=== PATIENT | male | born 1965 | race Caucasian/White ===

== ENCOUNTER 2020-08-17 10:25 | Emergency (ER) | payer BC, SELFPAY ==
--- NOTE | ~2020-08-17 | XR_ITS ---
EXAMINATION: XR CHEST CLINICAL INFORMATION: Hypoxia and chest pain COMPARISON: None TECHNIQUE: 2 views of the chest were obtained. FINDINGS: The cardiac and mediastinal contours are normal. The lungs are clear. There is no pleural effusion or pneumothorax. Bony structures are unremarkable. XR/XR chest 2V IMPRESSION: Unremarkable examination.
--- NOTE | ~2020-08-17 | CT_ITS ---
EXAMINATION: CT CHEST WITHOUT CONTRAST CLINICAL INFORMATION: Overdose. Question aspiration pneumonia. COMPARISON: Previous chest x-ray from earlier the same day TECHNIQUE: Multidetector volumetric CT imaging of the chest was done. Axial MIP volume rendering provided. Sagittal and coronal reformatted images were obtained. This CT examination was performed using dose optimization techniques as appropriate, variously including the following: *Automated exposure control *Adjustment of mA and/or kV according to patient size (this includes techniques or standardized protocols for targeted exams where dose is matched to indication/reason for exam; i.e. extremities or head) *Use of iterative reconstruction technique DLP: 421 mGy-cm FINDINGS: SUPERVISOR FRAME SAMPLE AND PATTERN: Unremarkable LUNGS: The lungs are clear without evidence of pneumonia. MEDIASTINUM: There are small mediastinal lymph nodes. No enlarged lymph nodes are seen. The heart does not appear enlarged. There is no pericardial effusion. There is mild coronary artery calcification. The thoracic aorta is normal in caliber. The esophagus is unremarkable. The visualized thyroid gland is unremarkable. PLEURA: There is no pleural effusion. No pleural mass or thickening. AXILLA: No lymphadenopathy. UPPER ABDOMEN: Unremarkable. OSSEOUS STRUCTURES: There are degenerative changes of the spine. CT/CT chest wo con IMPRESSION: No evidence of pneumonia.
[2020-08-17 10:38] VITALS: BP 125/72; PULSE 105; RESP 10; TEMP 35.7; O2SAT 93; BMI 28.5
--- NOTE | 2020-08-17 10:43 | ED_ITS ---
HPI - Overdose General Chief Complaint: Overdose Stated Complaint: OVERDOSE Time Seen by Provider: 08/17/20 10:43 Source: patient and EMS Mode of arrival: EMS Limitations: no limitations History of Present Illness HPI Narrative: 55 yo male here s/p accidental OD. Patient tells me he snorted 1 bag of heroin. Found by EMS not breathing. Given 8mg IN narcan and 2mg IM narcan to rouse. Denes Si/HI. Denies intentional OD. On naltrexone currently. Uses heroin occasionally, tells me last use 2 weeks ago. complaint: accidental overdose Related Data Allergies Allergy/AdvReac Type Severity Reaction Status Date / Time No Known Allergies Allergy Verified 08/17/20 12:59 Review of Systems Review of Systems: Yes all other systems are reviewed and are negative Constitutional: Constitutional: Reports no additional constitutional complaints, Denies body ache(s), Denies chills, Denies fever(s), Denies headache(s) and Denies weakness Eyes: Eyes: Reports no additional eye complaints and Denies change in vision ENT: Reports system reviewed and no additional complaints, except as documented, Denies dizziness, Denies headache(s), Denies nasal congestion, Denies nasal discharge and Denies neck pain Cardiovascular: Cardiovascular: Reports no additional cardiovascular complaint s, Denies chest pain, Denies leg edema and Denies dyspnea Respiratory: Respiratory: Reports no additional respiratory complaints, Denies cough and Denies dyspnea Gastrointestinal: Gastrointestinal: Reports no additional gastrointestinal complaints, Denies abdominal pain, Denies diarrhea, Denies nausea and Denies vomiting Genitourinary: Genitourinary: Denies urinary incontinence Musculoskeletal: Musculoskeletal: Reports no additional musculoskeletal complaints, Denies back pain, Denies arthralgias, Denies joint swelling, Denies neck pain, Denies numbness and Denies tingling Integumentary/Breasts: Skin/Breast: Reports system reviewed and no additional complaints, except as docu and Denies rash Neurologic: Reports system reviewed and no additional complaints, except as documented, Denies Abnormal speech present, Denies dizziness, Denies headache(s), Denies numbness, Denies tingling and Denies weakness PMFSH Past Medical History Attestation statement: The following information was validated with the patient. Source: old records reviewed and nursing notes reviewed Social History Social History Smoking Status: Unknown if ever smoked Use of substances other than those prescribed or required for medical reasons: Yes Substance Use Type: Heroin Substance Use Frequency: Occasionally Last Used Substance: Just Prior to Admission Advance Directives: No Advance Directives Information Provided: No Physical Exam Vital Signs: Vital Signs: Last Vital Signs Temp 96.3 F L 08/17/20 10:38 Pulse 95 08/17/20 12:40 Resp 12 08/17/20 11:50 BP 125/72 08/17/20 10:38 Pulse Ox 94 08/17/20 15:05 Body Mass Index 28.5 Const: General: cooperative, healthy appearing, comfortable and no acute distress Orientation/consciousness: patient oriented x3 Limitations: no limitations HENMT: Head: Yes normal to inspection Ears: hearing grossly normal bilaterally General nose exam: Normal external nose present Face and sinus: Yes normal facial exam Mouth: Normal oral and palatal mucosa present Throat: Yes posterior oropharynx normal Eyes: General: appearance normal, both eyes and all related structures Pupils: Equal, round and reactive pupils present Neck: Neck: Yes normal visual inspection Chest: Chest palpation & inspection: normal inspection of the chest Resp: Effort & Inspection: normal respiratory effort Auscultation: clear to auscultation bilaterally Cardio: Rate: regular rate Rhythm: regular rhythm Peripheral pulses: Peripheral pulses 2+ throughout GI: Inspection: Yes normal to inspection Palpation (GI): Soft to palpation and nontender Auscultation: normal bowel sounds Back/Spine/Pelvis: Thoracic/Lumbar Spine: thoracic and lumbar spine normal to inspection Skin: General skin exam: no rashes or lesions noted Neuro: Other: drowsy but answers all questions appropriately. General: patient oriented x3, no focal motor deficits and normal sensation to monofilament Cranial nerves: Yes Equal, round and reactive pupils present Cognition (Neuro): normal cognition Speech: No Abnormal speech present Gait exam (Neuro): Normal gait present Motor exam (neuro): 5/5 motor strength present throughout Extrem: General: Yes normal to inspection Course Course Course Narrative: 55-year-old male here status post accidental OD requiring Narcan in the field. On arrival alert and oriented, vital signs stable. Will monitor for brief time then discharge home. No SI/HI. No physical complaints. On naltrexone and not wanting any additional resources. 1300-Oxygen saturation 87% RA. Improved on 2 L NC. Patient tells me he has some chest discomfort which is reproducible and worsening with deep breathing and palpation. ?compressions by bystanders as patient has some slight erythema. Patient denies any symptoms of shortness of breath or cough or flu-like symptoms prior to his episode. Will check CXR, EKG, COVID screen. 1400-CXR negative, COVID screen negative. EKG shows no ischemic changes. ?aspiration PNA so will check CT Chest. 1500-CT chest unremarkable. Patient sitting up speaking full sentences in NAD. LS CTA. Saturations 94% RA. Will plan for discharge home. Given Narcan to go. Reviewed worrisome signs and symptoms of when to return to the emergency department. Comfortable discharge home. coming for patient. MDM - Overdose MDM Narrative Medical decision making narrative: pna, rib fracture, ptx, pe, respiratory depression from opiates Medical Records Attestation: I reviewed the patient's medical records. Lab Data Attestation: I reviewed the patient's lab results. Labs: Lab Results 08/17/20 08/17/20 Range/Units 13:26 13:26 Urine Opiates Screen POSITIVE H (Not Detect) Ur Barbiturates Screen Not Detected (Not Detect) Ur Phencyclidine Scrn Not Detected (Not Detect) Ur Amphetamines Screen Not Detected (Not Detect) U Benzodiazepines Scrn Not Detected (Not Detect) Urine Cocaine Screen POSITIVE H (Not Detect) U Marijuana (THC) Screen Not Detected (Not Detect) COVID-19 (LINK) Negative (Negative) COVID-19 Clin Com See Note Imaging Data Chest x-ray: Attestation: I personally reviewed and interpreted this imaging study as follows: Radiologist's impression: EXAMINATION: XR CHEST CLINICAL INFORMATION: Hypoxia and chest pain COMPARISON: None TECHNIQUE: 2 views of the chest were obtained. FINDINGS: The cardiac and mediastinal contours are normal. The lungs are clear. There is no pleural effusion or pneumothorax. Bony structures are unremarkable. XR/XR chest 2V IMPRESSION: Unremarkable examination. CT scan - head: Attestation: I personally reviewed and interpreted this imaging study as follows: Radiologist's impression: EXAMINATION: CT CHEST WITHOUT CONTRAST CLINICAL INFORMATION: Overdose. Question aspiration pneumonia. COMPARISON: Previous chest x-ray from earlier the same day TECHNIQUE: Multidetector volumetric CT imaging of the chest was done. Axial MIP volume rendering provided. Sagittal and coronal reformatted images were obtained. This CT examination was performed using dose optimization techniques as appropriate, variously including the following: *Automated exposure control *Adjustment of mA and/or kV according to patient size (this includes techniques or standardized protocols for targeted exams where dose is matched to indication/reason for exam; i.e. extremities or head) *Use of iterative reconstruction technique DLP: 421 mGy-cm FINDINGS: PRODUCTION TECH: Unremarkable LUNGS: The lungs are clear without evidence of pneumonia. MEDIASTINUM: There are small mediastinal lymph nodes. No enlarged lymph nodes are seen. The heart does not appear enlarged. There is no pericardial effusion. There is mild coronary artery calcification. The thoracic aorta is normal in caliber. The esophagus is unremarkable. The visualized thyroid gland is unremarkable. PLEURA: There is no pleural effusion. No pleural mass or thickening. AXILLA: No lymphadenopathy. UPPER ABDOMEN: Unremarkable. OSSEOUS STRUCTURES: There are degenerative changes of the spine. CT/CT chest wo con IMPRESSION: No evidence of pneumonia. ECG Data Attestation: I personally reviewed and interpreted this ECG as follows: ECG interpretation date: 08/17/20 ECG interpretation time: 13:45 Interpretation: NSR, RBBB, normal pr, normal qtc Discharge Plan Discharge Clinical Impression: Overdose Qualifiers: Encounter type: initial encounter Injury intent: accidental or unintentional Q ualified Code(s): T50.901A - Poisoning by unspecified drugs, medicaments and biological substances, accidental (unintentional), initial encounter Patient Disposition: Home, Self-Care Instructions: Adult Overdose (ED) Additional Instructions: Your oxygen saturations were low when you first got here. We did a x-ray and a CT which show no signs of pneumonia. However, if you develop a fever >100.4, shortness of breath or cough please return. Consider re-starting your naltrexone You were given narcan to go Referrals: James Che MD [Primary Care Provider] - 2 days Interventions: ED Discharge Assessment Last Done: 08/17/20 15:22 Discharge Date/Time: 08/17/20 15:26
[2020-08-17 11:50] VITALS: RESP 12; O2SAT 94
[2020-08-17 12:40] VITALS: PULSE 95; O2SAT 93
--- NOTE | 2020-08-17 12:58 | PC.NURSE ---
TRIAL OFF O2 SUPPORT PT DESAT TO 87%, PROVIDER AWARE AND PRESENT, HE WAS PLACED BACK ON O2 AT 2LNC
--- NOTE | 2020-08-17 12:59 | ECG_ITS ---
Test Reason : OVERDOSE Blood Pressure : / mmHG Vent. Rate : 091 BPM Atrial Rate : 091 BPM P-R Int : 158 ms QRS Dur : 162 ms QT Int : 430 ms P-R-T Axes : 030 014 015 degrees QTc Int : 528 ms Normal sinus rhythm Right bundle branch block Abnormal ECG No previous ECGs available Referred By: Doreen Maria Electronically Signed By:Trever Tompkins
[2020-08-17 13:48] LABS: COVID-19 Test Negative (Negative); IDNOW Serial# 9DD0AD1C
[2020-08-17 13:58] VITALS: O2SAT 94
[2020-08-17 13:58] LABS: Amphetamine Screen Urine Not Detected (Not Detect); Barbiturates, Urine Not Detected (Not Detect); Benzodiazepines Screen Urine Not Detected (Not Detect); Cannabinoid Screen Urine Not Detected (Not Detect); Cocaine Screen Urine POSITIVE (Not Detect); Opiate Screen Urine POSITIVE (Not Detect); Phencyclidine Screen Urine Not Detected (Not Detect)
[2020-08-17 15:05] VITALS: O2SAT 94
== END 2020-08-17 15:26 | disposition home or self-care (01) ==
LOC: HO.ED 11:10
PROVIDERS: Nurse Practitioner Family; Emergency Provider Emergency Medicine; PCP Internal Medicine
DX: T40.1X1A Poisoning by heroin, accidental (unintentional), initial encounter (principal); Y92.9 Unspecified place or not applicable; F11.10 Opioid abuse, uncomplicated; Z71.51 Drug abuse counseling and surveillance of drug abuser; Z20.822 Contact with and (suspected) exposure to COVID-19
CPT/HCPCS: 36415; 71046; 71250; 80307; 87635; 93005; 99284; 99285

== ENCOUNTER 2025-04-19 08:04 | Outpatient (AMB) | payer BC, SELFPAY ==
--- NOTE | 2025-04-19 08:10 | MHC.OFFWIV ---
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 Allergies No Known Allergies Allergy (Verified 04/19/25 08:13) Medication List - Last Reconciled 04/19/25 by Michelle Metz MD lamotrigine 400 mg PO BEDTIME lithium carbonate ER 600 mg PO BID lurasidone 40 mg PO DAILY omeprazole 40 mg PO DAILY HPI HPI Comments History of Present Illness Details Patient was informed and verbally consented to the use of an ambient scribe for clinic note documentation during the visit. History of Present Illness The patient is a 60-year-old male presenting with sinus pressure and ear pain - The patient has been experiencing symptoms for three weeks with fluctuating intensity. - Symptoms include pressure on the face, eye, and head, predominantly on the right side. - Nasal drainage is present - He has not had any fevers, chills, nausea, vomiting, or diarrhea. - The patient has been using saline nasal spray and an [id number] topical nasal product. - The patient experiences right ear involvement with associated dizziness. - He reports difficulty hearing from the affected ear and pain, but no drainage from the ear. Review of Systems - Head and Neck: Reports pressure on the right side of the face, head, and eye; nasal drainage; ear discomfort and hearing difficulty in the right ear. - Constitutional: Denies fever, chills, nausea, vomiting, or diarrhea. - Respiratory: Denies significant coughing or chest symptoms. No shortness of breath - Neurological: Reports dizziness when laying down and headaches. No focal weakness and numbness - Gastrointestinal: Denies symptoms. - EENT: Reports tearing of the right eye. Physical Exam General Appearance: Normal appearance, well developed. No acute distress ENT: Right TM with erythema and mild bulging. External ears and ear canals normal. Minimal nasal discharge. Mild postnasal drip. Oropharynx clear without erythema or exudate. Head: Normocephalic, atraumatic Pulmonary: No respiratory distress. Clear to auscultation bilaterally. Speaking in full sentences Cardiac: Regular rate and rhythm. No murmurs. Musculoskeletal: Moving all extremities spontaneously and against gravity Mental Status: Alert and Oriented x 3 Psychiatric: Normal mood. Normal affect. [facility] Social History Substance Use Type: Heroin Physical Exam Vital Signs: Last Vital Signs Temp 98.7 F 04/19/25 08:11 Pulse 94 04/19/25 08:11 BP 120/80 04/19/25 08:11 Pulse Ox 94 04/19/25 08:11 Oxygen Delivery Method Room Air 04/19/25 08:11 BMI result Body Mass Index 32.6 Assessment & Plan Assessment & Plan (1) Right otitis media: Code(s): H66.91 - Otitis media, unspecified, right ear Qualifiers: Otitis media type: unspecified Qualified Code(s): H66.91 - Otitis media, unspecified, right ear (2) Acute bacterial sinusitis: Code(s): J01.90 - Acute sinusitis, unspecified; B96.89 - Other specified bacterial agents as the cause of diseases classified elsewhere Plan - Augmentin (amoxicillin/clavulanate) prescribed, to be taken twice daily with food for seven days due to both sinus and ear infection. - The patient is advised to continue using saline nasal sprays and increased hydration. - Flonase is recommended. Discussed flonase may take a few days to take an effect. - Advised to monitor for severe symptoms such as ear pain, drainage, or fever, and return if they occur. Medications: New amoxicillin-pot clavulanate 875-125 mg 1 tab PO Q12H 14 tabs 0RF Coding Level of Care Code New Pt Level 3 (17158) Diagnoses Right otitis media, unspecified otitis media type H66.91 Otitis media type: unspecified Acute bacterial sinusitis J01.90; B96.89
[2025-04-19 08:11] VITALS: BP 120/80; PULSE 94; TEMP 37.1; O2SAT 94; BMI 32.6
--- OUTSIDE RECORDS SUMMARY | 2025-04-19 08:19 | XMS_ITS | Clinical Summary ---
Author Organization [facility] Address [address] [place] [address] Care Team Providers Care Pearl Digger Name Role Phone Unavailable Primary Care Provider Unavailabl e Immunizations Immunization Administration Dates Next Due Covid-19, Vector-nr (Chana), 0.5 Ml 10/04/2020 Influenza,injectable,MDCK, P rsrv Fr,Quad 03/21/2023,03/16/2022 Influenza,injectable,quad,Prsrv Fr 04/28/2021 Influenza,seasonal,trivalent ,preserva tive (FLUZONE MDV) 04/13/2016,03/11/2015,03/10/2014,2007 PPV23 (Pneumovax) 04/08/2017,07/03/2014 Td (adult), adsorbed 09/04/2019 Tdap 10/05/2007 influenza,seasonal,trivalent ,PF (Fluzone, Fluarix, Flulaval) 03/23/2024,04/08/2017 Social History Tobacco Use Types Packs/Day Years Used Date Smoking Tobacco: Never Assessed Sex and Gender Information Value Date Recorded Sex Assigned at Not on file Legal Sex Male 2:45 PM EST Gender Identity Not on file Sexual Orientation Not on file Plan of Treatment Health Maintenance Due Date Last Done Comments Hepatitis C Screening 1965 Hep B (1 of 3 - 19+ 3-dose series) 1986 Colon Cancer Screening 01/20/2012 Zoster (Shingrix) (1 of 2) 2017 Pneumococcal 50+ years (2 of 2 - PCV) 04/08/2018 04/08/2017, 07/03/2014 COVID-19 Vaccine (2 - 2024- season) 2025 10/04/2020 Influenza (#1) 2025 03/23/2024, 02/26, 03/16/2022, Additional history exists DTaP/Tdap/Td (3 - Td or Tdap) 09/03/2029 09/04/2019, 10/05/2007 HPV Vaccine (No Doses Required) Completed Hep A Aged Out No longer eligi ble based on patient's age to complete this topic Hib Aged Out No longer eligi ble based on patient's age to complete this topic Meningococcal ACWY Aged Out No longer eligible based on patient's age to complete this topic [place] [id number] [facility]
--- OUTSIDE RECORDS SUMMARY | 2025-04-19 08:19 | XMS_ITS | Clinical Summary ---
Author Organization 175 [facility] Address [address] [place] [address] Phone Care Team Providers Care Corporate Development Associate Name Role Phone Aakahs Ugarte Primary Care Provider [phone] Allergies Active Allergy Reactions Criticality Noted Date Comments Atorvastatin Calcium 10/05/2007 Abnormal lft and muscle pain and high CPK Codeine Other 10/05/2007 Stomach upset Medications cariprazine (Vraylar) 4.5 mg capsule Take 4.5 mg by mouth daily. 2 Active lamoTRIgine (LaMICtal) 200 mg tablet Take 2 Tabs by mouth at bedtime as needed. Active lithium (LITHOBID) 300 mg CR tablet TAKE 2 TABLETS BY MOUTH TWICE DAILY. 2 Active omeprazole (PriLOSEC) [address] capsule TAKE 1 CAPSULE BY MOUTH EVERY DAY 4 Active traZODone (DESYREL) 100 mg tablet Take 2 Tabs by mouth at bedtime. Active medical supply, miscellaneous (MISCELLANEOUS MEDICAL SUPPLY MISC) Inhale into the lungs. 3 Active Vitamin B-12 500 mcg tablet Take 1 tablet (500 mcg total) by mouth 1 (one) time each day. 5 Active ergocalciferol (VITAMIN D-2) 1,250 mcg (50,000 unit) capsule Take 1 capsule (50,000 Units total) by mouth. 5 Active folic acid (FOLVITE) 1 mg tablet Take 1 tablet (1 mg total) by mouth daily. Active hydrOXYzine pamoate (VISTARIL) 50 mg capsule Take 1 capsule (50 mg total) by mouth at bedtime as needed. at bedtime Active lurasidone (LATUDA) 40 mg tablet Take 1 tablet (40 mg total) by mouth. Active buPROPion XL (WELLBUTRIN XL) 150 mg 24 hr tablet Take 1 tablet (150 mg total) by mouth 1 (one) time each day. Do not crush, chew, or split. 90 tablet 3 5 Active Active Problems Problem Noted Date Diagnosed Date Abnormal nuclear stress test 06/22/2024 Assessment & Plan (09/25/2024 10:20 AM EDT): Presently asymptomatic with a history of heart failure with recovered ejection fraction and abnormal stress test. 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 His most recent echocardiogram demonstrated normal left ventricular systolic function. I encouraged him to go to continue to abstain from alcohol and substance use as these were the likely causes of his cardiomyopathy. As his ejection fraction normalized and he is asymptomatic I did not recommend medical therapy for heart failure. He did have preceding some of these events a abnormal stress test. I do believe that we should exclude epicardial CAD due to the stress test abnormality and we will make arrangements for a coronary CTA. I will plan to discuss the results of the study with the patient by phone. At present I do not believe there is a compelling argument to be made for aspirin as a preventative therapy. His last LDL was 172 however he has made significant lifestyle changes and will continue to do so. I recommended a general goal LDL of less than 130. He cannot tolerate statins so that if his LDL is above this goal despite lifestyle modification, would consider adding Zetia.. I will convey the results of his coronary CTA to the patient by phone. I have not scheduled routine clinical follow-up in our office I am happy to see him if any new issues arise Dilatation of thoracic aorta ([facility] V24) 06/18 Vitiligo 10/17/2020 Heroin overdose ([facility] V24, [facility] V28) 08/18 Overview (03/28/2024): - [place] [facility] seen for heroin overdose Obstructive sleep apnea 10/18/2016 Overview (03/28/2024): [facility] Home Sleep Apnea Test: Date 09/12/2019; Wt 221#; BMI 30; POORNIMA 9, AI 1; HI 8; Unclassified apneas 0; Obstructive apneas 6; Central apneas 1; Mixed apneas 0; hypopneas 70; average oxygen saturation 93% (lowest 79% without saturations <88% for 5% or more of study) - Obstructive Sleep Apnea - moderate AHI 15 in 2011. - Obstructive Sleep Apnea - mild; mostly hypopneas; with sleep related hypoventilation by 2019 home sleep apnea test. Last Assessment & Plan: Patient has history of sleep apnea since 2011. He is coming now with worsening symptoms and a ESS of 13. His lab study was a home sleep study in 2019. The patient states he would like to use treatment now with CPAP and he will try now. He has about the inspire device but his BMI is more than 30 right now and he has not failed CPAP so far. He will need a new sleep study. Renal cyst, left 06/02/2016 Mixed hyperlipidemia 05/31/2016 Sleep apnea 03/20/2012 Overview (03/28/2024): Panic attack with CPAP so he doesn't use it Asthma 09/14/2008 High cholesterol 05/03/2008 Cocaine abuse, episodic use ([facility] V24, CMS/HC C V28) 11/27/2007 Overview (03/28/2024): Patient is going to the intensive outpatient recovery program at [facility]. Alcohol abuse, episodic drinking behavior 2007 Bipolar affective disorder ([facility] V24, [facility] V28) 10/05/2007 Heartburn 10/05/2007 Benign prostatic hyperplasia 10/05/2007 Immunizations Immunization Administration Dates Next Due Influenza Quadravalent, MDCK , 0.5ml, preservative free (Flucelvax) 6mo and older 03/21/2023,03/16/2022 Influenza trivalent, 0.5mL, preservative free (Fluarix; FluLaval; Fluzone) ages 6mo and older (Afluria) 3 years and older 04/08/2017 Influenza trivalent, with pr eservative (Fluzone; Afluria) 6mo and older 04/28/2021,04/27/2016,04/13/2016,03/11,03/10/2014,04/26/2008 Pneumococcal polysaccharide 23 valent (Pneumovax 23) 2yo and older 04/08/2017,07/03/2014 Td Tetanus diptheria (Tdvax) 7yo and older 09/04/2019 Tdap Tetanus diptheria acell ular pertussis (Boostrix; Adacel) 7yo and older 10/05/2007 Surgical History Surgery Date Site/Laterality Comments COLONOSCOPY 03/04/2008 PROCEDURE: HISTORICAL COLONOSCOPY; COMMENT: Up to cecum, good preparation, normal colon exam UPPER GASTROINTESTINAL ENDOSCOPY 07/05/2016 PROCEDURE: [place] UPPER GI ENDOSCOPY PERFORMED; COMMENT: Visually normal on PPI treatment. OTHER SURGICAL HISTORY 07/05/2016 PROCEDURE: [place] DILATION ESOPH UNGUIDED SOUND/BOUGIE 1/MULT PASS; COMMENT: 50 Fr Solares bougie. COLONOSCOPY 11/18/2020 PROCEDURE: HISTORICAL COLONOSCOPY; COMMENT: monique normal 5 years HAND SURGERY PROCEDURE: HISTORICAL HAND SURGERY; COMMENT: partial finger amputation lawnmower Medical History Medical History Date Comments Asthma 09/14/2008 DX:Asthma Alcohol abuse, episodic drin georgie behavior 11/27/2007 DX:Alcohol abuse, episodic d rinking behavior Bipolar affective disorder ( [facility] V24, [facility] V28) 10/05/2007 DX:Bipolar affective disorde r ([facility]) Cocaine abuse, episodic use ([facility] V24, [facility] V28) 11/27/2007 DX:Cocaine abuse, episodic u se (HCC) Historical Medical DX 10/05/2007 DX:BPH Heartburn 10/05/2007 DX:Heartburn High cholesterol 05/03/2008 DX:High cholest myke Family History Medical History Relation Name Comments Melanoma Brother 1 mets to brain Colon cancer Father Coronary artery disease Father CHF COPD Mother smoker Other: temporal arteritis Mother Relation Name Status Comments Brother 1 Alive high cholestero l Brother 2 Alive Brother 3 Alive Brother 4 Alive Daughter Alive Father CAD, CANCER OF THE COLON Mother high cholestero l Sister 1 Alive Sister 2 Alive Sister 3 Alive Sister 4 Alive Sister 5 Alive Son 1 Alive Son 2 Alive Son 3 Alive Social History Tobacco Use Types Packs/Day Years Used Date Smoking Tobacco: Never Smokeless Tobacco: Never Tobacco Cessation:Counseling Given: Not Answered Alcohol Use Standard Drinks/Week Comments Yes 0 (1 standard drink = 0.6 oz pur e alcohol) Sex and Gender Information Value Date Recorded Sex Assigned at Not on file Legal Sex Male 7:43 PM EST Gender Identity Not on file Sexual Orientation Not on file Obstetrics History Last Filed Vital Signs Vital Sign Reading Time Taken Comments Blood Pressure 126/80 09/25/2024 9:31 AM EDT Pulse 55 09/25/2024 9:31 AM EDT Temperature 36.1 C (96.9 F) 09/19/2024 9:17 AM EDT Respiratory Rate 17 09/19/2024 9:17 AM EDT Oxygen Saturation 93% 09/25/2024 9:31 AM EDT Inhaled Oxygen Concentration - - Weight 105 kg (232 lb) 09/25/2024 9:31 AM EDT Height 188 cm (6' 2 ) 09/25/2024 9:31 AM EDT Body Mass Index 29.79 09/25/2024 9:31 AM EDT Plan of Treatment Upcoming Encounters Date Type Department Care Team (Late st Contact Info) Description 06/18/2025 10:00 AM EST Ancillary Procedure [facility] [address] [facility] [address] [place] [address] Health Maintenance Due Date Last Done Comments Hepatitis B Vaccines (1 of 3 - 19+ 3-dose series) 1986 RSV Immunization Adult Patients (1 - Risk 50-74 years 1-dose series) 2017 Zoster Vaccines (1 of 2) 2017 Hepatitis A Vaccines (2 of 2 - Risk 2-dose series) 05/26/2017 11/23/2016 Pneumococcal Vaccine: 50+ Years (2 of 2 - PCV) 04/08/2018 04/08/2017, 07/03/2014 HIV Screening 06/05/2022 Social Influencers of Health Screening 06/05/2022 Depression Screening 06/27/2024 COVID-19 Vaccine (2 - season) 2025 10/04/2020 Influenza Vaccine (#1) 2025 4, 03/21/2023, 03/16/2022, Additional history exists Colorectal Cancer Screening: Colonoscopy 11/18/2025 11/18/2020 DTaP,Tdap,and Td Vaccines (4 - Td or Tdap) 09/03/2029 09/04/2019, 11/23/2016, 10/05/2007 Cholesterol Screening (Lipid Panel) 09/04/2029 09/04/2024, 03/23/2024, 03/23/2024 Hepatitis C Screening Completed 09/07/2019 HIB Vaccines Aged Out No longer eligi ble based on patient's age to complete this topic HPV Vaccines Aged Out No longer eligi ble based on patient's age to complete this topic IPV Vaccines Aged Out No longer eligi ble based on patient's age to complete this topic MMR Vaccines Aged Out No longer eligi ble based on patient's age to complete this topic Meningococcal ACWY Vaccine Aged Out N o longer eligible based on patient's age to complete this topic Meningococcal B Vaccine Aged Out No l onger eligible based on patient's age to complete this topic RSV Immunization Patients Under 20 months Aged Out No longer eligible based on patient's age to complete this topic Varicella Vaccines Aged Out No longer eligible based on patient's age to complete this topic Goals Goal Patient Goal Type Associated Problems Recent Progress Patient-Stated? Author STG's 6 visits General Yes Manolo Wren, PT Note: Pt will demonstrate a 1/2 grade or better increase in R UE strength for ADL's and IADL's. Pt is Independent and compliant with initial HEP. 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 LTG's 12 visits General Yes Manolo Wren, PT Note: Pt will demonstrate R UE strength of 4/5 or better for ADL's and IADL's. Pt is Independent and compliant with final HEP. 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 Procedures Procedure Name Priority Date/Time Associated Diagnosis Comments LIPID PANEL Routine 03/23/2024 HM COLONOSCOPY Routine 11/18/2020 HEPATITIS C SCREENING Routine 09/07/2019 from Last 3 Months or Most Recently Relevant to Health Maintenance Results * (ABNORMAL) Lipid panel (03/23/2024) Pathologist [facility] LDL/HDL Ratio 4 0 - 4 Triglycerides 110 0 - 150 mg/dL Cholesterol 253(A) 0 - 200 mg/dL HDL 59 >=40 mg/dL LDL Cholesterol 172(A) 0 - 100 mg/dL Blood Venous blood specimen / Unknown [facility] Provider LAB BLOOD ORDERABLES Yamile l Result * Colonoscopy (11/18/2020) [facility] Colonoscopy abstracted, no interpretation Anatomical Region Laterality Modality Other [facility] Provider HEALTH MAINTENANCE Final Result * Hepatitis C Screening (09/07/2019) [facility] Hepatitis C Screening abstracted [facility] Provider HEALTH MAINTENANCE Final Result from Last 3 Months or Most Recently Relevant to Health Maintenance Insurance [facility] Care Teams Corporate Development Associate Relationship Specialty Start Date End Date Aakash Ugarte PA [address] [place] [id number] PCP - General Internal Medicine 01/30/21
[2025-04-19 08:40] VITALS: O2SAT 96
== END 2025-04-19 08:44 | disposition home or self-care (01) ==
PROVIDERS: PCP Internal Medicine; Visit Provider Family Medicine
DX: H66.91 Otitis media, unspecified, right ear (principal); J01.90 Acute sinusitis, unspecified; B96.89 Other specified bacterial agents as the cause of diseases classified elsewhere
CPT/HCPCS: 99203

== ENCOUNTER 2025-04-26 12:14 | Outpatient (AMB) | payer BC, SELFPAY ==
[2025-04-26 12:32] VITALS: BP 110/80; PULSE 98; RESP 16; TEMP 36.6; O2SAT 95; BMI 32.0
--- NOTE | 2025-04-26 12:32 | AM.OFFWIN_ITS ---
Intake Vital Signs 04/26/25 12:32 Height 6 ft 2 in Weight 249 lb BMI 32.0 BP 110/80 Blood Pressure Location Lt brachial Position Sitting Respiration 16 Pulse 98 Pulse Source Pulse Oximeter Temp 97.8 F Temp Source Oral Pulse Oximetry (%) 95 Oxygen Delivery Method Room Air Intake Visit Reasons: EP Right ear pain Intake Note: Pt is here today c/o Rt ear pain: pt states was seen last tuesday for this pain and finished abx no improvement Patient Tobacco Use Status: Never used Tobacco Allergies No Known Allergies Allergy (Verified 04/26/25 12:34) HPI HPI Comments History of Present Illness Details This is a 60 year old male with a past medical history of bipolar d isorder presenting for evaluation of right ear pain. Patient was seen on April 19 and prescribed a 1 week course of Augmentin for management of a bacterial sinusitis. Patient states that his sinusitis symptoms have completely resolved however he continues to have discomfort and decreased hearing in his right ear. Patient denies having any new fevers, chills, sore throat or difficulty swallowing. [facility] Social History Patient Tobacco Use Status: Never used Tobacco Substance Use Type: Heroin Review of Systems Const All systems reviewed & are unremarkable except as noted in HPI and below Denies chills and Denies fever(s) Eyes Reports no additional complaints ENT Reports otalgia (right ear), Denies sinus pain and Denies sinus pressure Card Reports no additional complaints Resp Reports no additional complaints Skin/Breast Reports system reviewed and no additional complaints, except as documented Neuro Reports no additional complaints Physical Exam Vital Signs: Last Vital Signs Temp 97.8 F 04/26/25 12:32 Pulse 98 04/26/25 12:32 Resp 16 04/26/25 12:32 BP 110/80 04/26/25 12:32 Pulse Ox 95 04/26/25 12:32 Oxygen Delivery Method Room Air 04/26/25 12:32 BMI result Body Mass Index 32.0 Const General: cooperative, healthy appearing, comfortable, no acute distress, well developed, alert, awake, Physically active and well groomed; No ill appearing Nutritional Appearance: average body habitus Orientation/consciousness: patient oriented x3 Limitations: no limitations HEENT Head: Yes normal to inspection and Yes normocephalic Ears: external ears normal, TM's normal bilaterally, EAC's normal and mastoids normal General nose exam: Normal external nose present Face and sinus: Yes normal facial exam and No sinus tenderness Mouth: Normal oral and palatal mucosa present, oropharynx normal and moist mucous membranes Throat: Yes posterior oropharynx normal and No postnasal drainage Eyes General: appearance normal, both eyes and all related structures Neck Lymphatic: no lymphadenopathy noted Skin General skin exam: no rashes or lesions noted Neuro General: patient oriented x3 Psych Appearance: grossly normal Mental Status: mental status grossly normal Insight: Good insight present (Psych) Judgement: Good judgement present (Psych) Assessment & Plan Assessment & Plan (1) Otalgia, right ear: Comment: There is no clinical evidence of an otitis media, otitis externa or bacterial pharyngitis. He completed his entire course of Augmentin yesterday. Patient is reassured and will be discharged home. Code(s): H92.01 - Otalgia, right ear Plan: Tylenol or ibuprofen as needed for discomfort. Follow up only as needed. Coding Level of Care Code Est Pt Level 3 (06406) Diagnoses Otalgia, right ear H92.01 Time Spent (min) 20
--- OUTSIDE RECORDS SUMMARY | 2025-04-26 13:43 | XMS_ITS | Clinical Summary ---
Author Organization [facility] Address [address] [place] [address] Care Team Providers Care Measuring Machine Operator Name Role Phone Unavailable Primary Care Provider [...] this [place] [id number] [facility]
--- OUTSIDE RECORDS SUMMARY | 2025-04-26 13:43 | XMS_ITS | Clinical Summary ---
Author Organization [address] [facility] Address [address] [place] [address] Phone Care Team Providers Care Coagulator Name Role Phone Aakash Ugarte Primary Care Provider [phone] Allergies Active Allergy Reactions Criticality Noted Date [...] new issues arise Dilatation of thoracic aorta ([facility] V24) 06/18 Vitiligo 10/17/2020 Heroin overdose ([facility] V24, [facility] V28) 08/18 Overview (03/28/2024): - [place] seen for heroin overdose Obstructive sleep apnea 10/18/2016 Overview (03/28/2024): [facility] Home Sleep Apnea Test: Date 09/12/2019; Wt [...] High cholesterol 05/03/2008 Cocaine abuse, episodic use ([facility] V24, CMS/HC C V28) 11/27/2007 Overview (03/28/2024): Patient is going to the intensive outpatient recovery program at [facility]. Alcohol abuse, episodic drinking behavior 2007 Bipolar affective disorder ([facility] V24, [facility] V28) 10/05/2007 Heartburn 10/05/2007 Benign prostatic hyperplasia [...] colon exam UPPER GASTROINTESTINAL ENDOSCOPY 07/05/2016 PROCEDURE: [place] UPPER GI ENDOSCOPY PERFORMED; COMMENT: Visually normal on PPI treatment. OTHER SURGICAL HISTORY 07/05/2016 PROCEDURE: [place] DILATION ESOPH UNGUIDED SOUND/BOUGIE 1/MULT PASS; COMMENT: 50 Fr Solares bougie. COLONOSCOPY 11/18/2020 PROCEDURE: HISTORICAL COLONOSCOPY; COMMENT: monique normal 5 years HAND SURGERY PROCEDURE: HISTORICAL HAND SURGERY; COMMENT: partial finger amputation lawnmower Medical History Medical History Date Comments Asthma 09/14/2008 DX:Asthma Alcohol abuse, episodic drin georgie behavior 11/27/2007 DX:Alcohol abuse, episodic d rinking behavior Bipolar affective disorder ( [facility] V24, [facility] V28) 10/05/2007 DX:Bipolar affective disorde r ([facility]) Cocaine abuse, episodic use ([facility] V24, [facility] V28) 11/27/2007 DX:Cocaine abuse, episodic u se [...] Description 06/18/2025 10:00 AM EST Ancillary Procedure [facility] - [facility] [address] [facility] [address] [place] [address] Health Maintenance Due Date Last [...] Results * (ABNORMAL) Lipid panel (03/23/2024) Pathologist [facility] LDL/HDL Ratio 4 0 - 4 Triglycerides 110 0 - 150 mg/dL Cholesterol 253(A) 0 - 200 mg/dL HDL 59 >=40 mg/dL LDL Cholesterol 172(A) 0 - 100 mg/dL Blood Venous blood specimen / Unknown [facility] Provider LAB BLOOD ORDERABLES Yamile l Result * Colonoscopy (11/18/2020) Pathologist [facility] Colonoscopy abstracted, no interpretation Anatomical Region Laterality Modality Other [facility] Provider HEALTH MAINTENANCE Final Result * Hepatitis C Screening (09/07/2019) Pathologist [facility] Hepatitis C Screening abstracted [facility] Provider HEALTH MAINTENANCE Final Result from Last 3 Months or Most Recently Relevant to Health Maintenance Insurance [facility] Care Teams Coagulator Relationship Specialty Start Date End Date Aakash Ugarte PA [address] [place] [phone] PCP - General Internal Medicine 01/30/21
== END 2025-04-26 13:06 | disposition home or self-care (01) ==
PROVIDERS: PCP Internal Medicine; Visit Provider Physician Assistant
DX: H92.01 Otalgia, right ear (principal)